=== PATIENT | male | born 1965 ===

== ENCOUNTER 2017-01-12 20:45 | Emergency (ER) | payer MEDICAID ==
[2017-01-12 21:07] VITALS: BP 131/72; PULSE 66; RESP 17; TEMP 97.8; O2SAT 99
--- NOTE | 2017-01-12 21:22 | ED PDOC ---
HPI: Back Time Seen by Provider: 01/12/17 21:09 Chief Complaint (Nursing): Back Pain Chief Complaint (Provider): Back Pain History Per: Patient History/Exam Limitations: no limitations Additional Complaint(s): 51 year old male with a past medical history of chronic back pain due to multilevel herniated discs and chronic right hip arthritis presents to emergency department with exacerbation of pain that started a few days ago. Patient denies fall or trauma. He has been taking Motrin which has provided minimal pain relief. He denies any associated bowel or bladder dysfunction. Patient states he recently relocated from [place] to [place] and currently does not have a primary doctor. Past Medical History Reviewed: Historical Data, Nursing Documentation, Vital Signs Vital Signs: Last Vital Signs Temp 97.8 F 01/12/17 20:57 Pulse 66 01/12/17 20:57 Resp 17 01/12/17 20:57 BP 131/72 01/12/17 20:57 Pulse Ox 99 01/12/17 20:57 - Medical History PMH: Arthritis (right hip), Back Problems (herniated disc), Hepatitis (C) - Surgical History Surgical History: No Surg Hx - Family History Family History: States: No Known Family Hx - Living Arrangements Living Arrangements: With Family - Social History Current smoker - smoking cessation education provided: Yes Alcohol: None Drugs: Denies - Home Medications Home Medications: Ambulatory Orders Medication Instructions Recorded Cyclobenzaprine [Cyclobenzaprine 10 mg PO TID #12 tab 09/01/16 HCl] Naproxen [Naprosyn] 500 mg PO Q12H #20 tab 09/01/16 Cyclobenzaprine [Cyclobenzaprine 10 mg PO TID PRN #20 tab 01/12/17 HCl] Naproxen [Naprosyn] 500 mg PO BID #20 tab 01/12/17 - Allergies Allergies/Adverse Reactions: Allergies Allergy/AdvReac Type Severity Reaction Status Date / Time No Known Allergies Allergy Verified 09/01/16 09:17 Review of Systems ROS Statement: Except As Marked, All Systems Reviewed And Found Negative Constitutional: Negative for: Fever, Chills Cardiovascular: Negative for: Chest Pain Respiratory: Negative for: Cough Gastrointestinal: Negative for: Nausea, Vomiting Musculoskeletal: Positive for: Back Pain (Acute on chronic low back pain), Other (Acute on chronic right hip pain) Neurological: Negative for: Headache, Dizziness Physical Exam - Reviewed Nursing Documentation Reviewed: Yes Vital Signs Reviewed: Yes - Physical Exam Appears: Positive for: Well, Non-toxic, No Acute Distress Head Exam: Positive for: ATRAUMATIC, NORMAL INSPECTION, NORMOCEPHALIC Skin: Positive for: Normal Color. Negative for: Rash Cardiovascular/Chest: Positive for: Regular Rate, Rhythm Respiratory: Positive for: Normal Breath Sounds Back: Positive for: Other (diffuse tenderness to lower lumbar region, negative bilateral straight leg raise, patient is able to heel and toe walk). Negative for: L CVA Tenderness, R CVA Tenderness Extremity: Positive for: Normal ROM. Negative for: Pedal Edema Neurologic/Psych: Positive for: Alert, Oriented, Gait (steady) - ECG O2 Sat by Pulse Oximetry: 99 (RA) Pulse Ox Interpretation: Normal Medical Decision Making Medical Decision Making: Time: 20:57 Initial Impression: chronic back and hip pain Initial Plan: --Toradol 30 mg IM Patient feels better after toradol given. Rx naprosyn and flexeril given. Patient was referred to clinic for follow up. Scribe Attestation: Documented by Bekah Dash, acting as a scribe for Elo Trujillo PA-C. Provider Scribe Attestation: All medical record entries made by the Scribe were at my direction and personally dictated by me. I have reviewed the chart and agree that the record accurately reflects my personal performance of the history, physical exam, medical decision making, and the department course for this patient. I have also personally directed, reviewed, and agree with the discharge instructions and disposition. Disposition - Clinical Impression Clinical Impression: Back pain, Chronic back pain - Patient ED Disposition Is Patient to be Admitted: No Counseled Patient/Family Regarding: Diagnosis, Need For Followup, Rx Given - Disposition Referrals: [facility] [Outside] Disposition: Routine/Home Disposition Time: 22:27 Condition: STABLE Additional Instructions: Take rx meds as directed as needed for pain. Follow up with clinic. Prescriptions: Cyclobenzaprine [Cyclobenzaprine HCl] 10 mg PO TID PRN #20 tab PRN Reason: Muscle Spasm Naproxen [Naprosyn] 500 mg PO BID #20 tab Instructions: Chronic Back Pain (ED)
== END 2017-01-12 22:56 | disposition home or self-care (01) ==
LOC: H.ER 20:45
DX: M54.9 Dorsalgia, unspecified (principal)

== ENCOUNTER 2017-03-22 11:16 | Emergency (ER) | payer MEDICAID ==
[2017-03-22 11:21] VITALS: BMI 23.3
[2017-03-22 11:22] VITALS: RESP 18
[2017-03-22] MEDS ORDERED: Lidocaine 1% Inj (20ml) IJ ONE (12:29)
[2017-03-22] MEDS ORDERED: Lidocaine 1% Inj (20ml) ONE (12:41)
[2017-03-22] MEDS ORDERED: Povidone Iodine Topical 10% Sol ONE (13:25)
[2017-03-22] MEDS ORDERED: Povidone Iodine Oint 10% Foilpak UD ONE (13:26)
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
[2017-03-22 15:45] VITALS: BP 120/76; PULSE 70; TEMP 98
[2017-03-24 10:27] VITALS: O2SAT 99
== END 2017-03-22 15:46 | disposition home or self-care (01) ==
LOC: H.ER 11:16
DX: S41.112A Laceration without foreign body of left upper arm, initial encounter (principal); S21.112A Laceration without foreign body of left front wall of thorax without penetration into thoracic cavity, initial encounter; X99.9XXA Assault by unspecified sharp object, initial encounter; Y92.89 Other specified places as the place of occurrence of the external cause